=== PATIENT | male | born 1985 | race Hispanic/Latino ===

== ENCOUNTER 2019-12-29 08:34 | Observation (INO) | payer BC ==
[~2019-12-29] VITALS: Ht 170.2 cm; Wt 115.7 kg
--- NOTE | 2019-12-29 09:04 | Emergency Department Note ---
History of Present Illnes History of Present Illness Chief Complaint: General Medicine Complaints History of Present Illness This is a 34 year old male Chief Complaint Comment pt came in via POV referred by PCP, pt states that he had labs drawn yesterday due to nausea and was advised by his PCP to come to ED due to some abnormal labs, pt states that he was told his "liver" enzymes were elevated, pt is a newly diagnosed diabetic and was prescribed Metformin, pt has no complaints at this time but states that his doctor wants him to be admitted Historian: Patient Arrival Mode: Car Television Presenter Required: No Onset (how long ago): unknown Location: Blood Quality: Abnormal lab test Radiation: Reports non-radiation Severity: mild Onset quality: unable to specify Duration (how long): day(s) (1) Timing of current episode: constant Progression: unchanged Chronicity: new Context: Denies recent illness, Denies recent surgery Relieving factors: none Exacerbating factors: none Associated symptoms: Reports denies other symptoms Treatments prior to arrival: none Past Medical/Family History Physician Review I have reviewed the patient's past medical and family history. Any updates have been documented here. Past Medical History Recent Fever: No Clinical Suspicion of Infectio: No New/Unexplained Change in Ment: No Past Medical History: None Past Surgical History: None Other Any Pre-Existing Lines (PICC,: No Review of Systems Review of Systems Constitutional: Reports no symptoms EENTM: Reports no symptoms Cardiovascular: Reports no symptoms Respiratory: Reports no symptoms Gastrointestinal: Reports no symptoms Genitourinary: Reports no symptoms Musculoskeletal: Reports no symptoms Integumentary: Reports no symptoms Neurological: Reports no symptoms Psychological: Reports no symptoms Endocrine: Reports no symptoms Hematological/Lymphatic: Reports no symptoms Physical Exam Related Data Allergies: Coded Allergies: No Known Allergies (Unverified , 12/29/19) Triage Vital Signs Vital Signs Date Time Temp Pulse Resp B/P (MAP) Pulse Ox O2 Delivery O2 Flow Rate FiO2 12/29/19 08:54 98.6 102 18 134/87 100 Room Air Vital signs reviewed: Yes Physical Exam CONSTITUTIONAL Constitutional: Present well-developed, Present well-nourished HENT HENT: Present normocephalic, Present atraumatic, Present oropharynx clear/moist, Present nose normal HENT L/R: Present left ext ear normal, Present right ext ear normal EYES Eyes: Reports PERRL, Reports conjunctivae normal NECK Neck: Present ROM normal PULMONARY Pulmonary: Present effort normal, Present breath sounds normal CARDIOVASCULAR Cardiovascular: Present regular rhythm, Present heart sounds normal, Present capillary refill normal, Present normal rate GASTROINTESTINAL Abdominal: Present soft, Present nontender, Present bowel sounds normal GENITOURINARY Genitourinary: Present exam deferred SKIN Skin: Present warm, Present dry MUSCULOSKELETAL Musculoskeletal: Present ROM normal NEUROLOGICAL Neurological: Present alert, Present oriented x 3, Present no gross motor or sensory deficits PSYCHOLOGICAL Psychological: Present mood/affect normal, Present judgement normal Assessment & Plan Medical Decision Making MDM 34 y.o M presents for elevated LFT's. He has not complaints at this time. Labs drawn. Dr. Rutherford Patient. Labs show ALT 780 AST 480. Will admit to Dr. Rutherford for further work up. Reassessment Reassessment time: 10:07 Reassessment Well appearing, NAD Assessment & Plan Final Impression: (1) Elevated LFTs Depart Disposition: ADMITTED Last Vital Signs Date Time Temp Pulse Resp B/P (MAP) Pulse Ox O2 Delivery O2 Flow Rate FiO2 12/29/19 08:54 98.6 102 18 134/87 100 Room Air CHRISTINA GUZMAN MD Dec 29, 2019 09:04
[2019-12-29 09:22] LABS: BASOPHILS % 0.6 % (0.0-1.0); EOSINOPHILS # (AUTO) 0.1 (0.0-0.4); EOSINOPHILS % 1.9 % (0.0-6.0); HEMATOCRIT 50.3 % (38.2-49.6); HEMOGLOBIN 17.9 g/dL (14.0-18.0); LYMPHOCYTES # (AUTO) 1.5 (1.0-3.2); MEAN CORPUSCULAR HEMOGLOBIN 30.7 pg (28-32); MEAN CORPUSCULAR HGB CONC 35.6 g/dL (31-35); MEAN CORPUSCULAR VOLUME 86.1 fL (81-99); MONOCYTES # (AUTO) 0.6 (0.2-0.8); MONOCYTES % 8.6 % (4.4-11.3); NEUTROPHILS # (AUTO) 4.1 (2.1-6.9); NEUTROPHILS % 64.6 % (38.7-80.0); PLATELET COUNT 295 x10e3/uL (140-360); RED BLOOD COUNT 5.84 x10e6/uL (4.3-5.7); RED CELL DISTRIBUTION WIDTH 11.6 % (11.7-14.4)
[2019-12-29 09:49] LABS: ALBUMIN 4.6 g/dL (3.5-5.0); ALBUMIN/GLOBULIN RATIO 1.2 (0.8-2.0); CALCIUM 10.1 mg/dL (8.4-10.2); CREATININE, SERUM 1.45 mg/dL (0.72-1.25)
[2019-12-29] MEDS ORDERED: SODIUM CHLORIDE 0.9% 1000ML 1,000 ML IV SCH (10:00)
--- NOTE | 2019-12-29 11:30 | NUR ---
PT ARRIVED FROM ER. PT IS AAOX4. AT BEDSIDE. EDUCATED PT ABOUT FALL PRECAUTIONS. PT VERBALIZED UNDERSTANDING. CALL LIGHT WITH IN EASY REACH. INSTRUCTED PT TO USE CALL LIGHT FOR ALL THE NEEDS. BED IS LOW AND LOCKED. SIDE RAILS X2. ALL SAFETY MEASURES IN PLACE. PT DENIES NEEDS AT THIS TIME.
--- NOTE | 2019-12-29 11:50 | NUR ---
PT BLOOD SUGAR 324. REPORTED TO DR. RED. NEW ORDER RECEIVED.
[2019-12-29] MEDS ORDERED: DEXTROSE 50% SYRINGE 50 ML IV PRN (12:00)
--- NOTE | 2019-12-29 12:00 | NUR ---
PT CAME WITH IV FLUIDS NS FROM ER.
[2019-12-29 12:02] VITALS: BP 143/80
[2019-12-29] MEDS: INSULIN LISPRO 100 UNIT/1 ML 3ML VIAL SQ SCH ×3 (12:15→21:08)
[2019-12-29] MEDS: SODIUM CHLORIDE 0.9% 1000ML 1,000 ML IV SCH ×2 (12:22→20:08)
--- NOTE | 2019-12-29 12:30 | NUR ---
PAGED DR. HAHN OFFICE REGARDING NEW CONSULT.
[2019-12-29 13:00] VITALS: BP 143/80
[2019-12-29] MEDS ORDERED: METFORMIN HCL500 MG PO (14:19)
[2019-12-29 14:20] VITALS: BP 143/80
[2019-12-29 15:57] VITALS: BP 140/93
[2019-12-29] MEDS: METFORMIN HCL 500 MG TAB PO SCH (16:38)
[2019-12-29 19:00] VITALS: BP 144/94
--- NOTE | 2019-12-29 19:12 | NUR ---
BEDSIDE SHIFT REPORT GIVEN TO THE BARREL RIFLER OPERATOR RN. PT DENIED FURTHER NEEDS.
[2019-12-29 21:00] VITALS: BP 144/94
--- NOTE | 2019-12-29 22:15 | Consultation ---
DATE OF CONSULTATION: 12/29/2019 HISTORY OF PRESENT ILLNESS: This is a 34-year-old very nice gentleman who has not much of medical problem, presented and admitted to the hospital because of 1-week history of not feeling well and also nausea. He denies any abdominal pain along with this problem and his workup revealed that he has significant elevated liver function tests with AST of 488, ALT of 780, and bilirubin of 1.7. He denies any history of hepatitis and he also denies any history of alcohol abuse. PAST MEDICAL HISTORY: His past medical problem is unremarkable except history of diabetes. MEDICATIONS: At home including insulin and metformin. ALLERGIES: NONE. SOCIAL HISTORY: No alcohol abuse. FAMILY HISTORY: Noncontributory. REVIEW OF SYSTEMS: Denies any chest pain or shortness of breath. Denies any dysphagia or odynophagia. Denies any dysuria, hematuria, or any kind of syncopal episode. PHYSICAL EXAMINATION: GENERAL: He is awake, alert, appears to be stable. VITAL SIGNS: Afebrile, currently with stable vital signs. HEAD, EYES, EARS, NOSE, AND THROAT: Normocephalic, atraumatic. Sclerae are mildly icteric. NECK: Supple. HEART: Regular. LUNGS: Clear. ABDOMEN: Soft. There is no distention at this point. It is nontender. EXTREMITIES: No clubbing. LABORATORY VALUES: WBC 6.38, hemoglobin 17.9, hematocrit of 50.3, and platelet count 285, sodium 133, BUN 12, creatinine 1.45, bilirubin 1.7, AST 488, ALT 780. IMPRESSION: Elevated liver function tests and some nausea. Rule out possibility of acute hepatitis. Recommend possibly viral. Recommendation is to obtain abdominal ultrasounds, hepatitis panel, and then follow labs clinically. Santiago Patel MD DHD/MODL /[id number] cc: Justus Rutherford MD
[2019-12-30] VITALS (8 sets, daily range): BP systolic 117–139; BP diastolic 70–94
[2019-12-30] MEDS: SODIUM CHLORIDE 0.9% 1000ML 1,000 ML IV SCH ×3 (03:49→20:14)
[2019-12-30 05:21] LABS: BASOPHILS # (AUTO) 0.1 (0.0-0.1); BASOPHILS % 0.9 % (0.0-1.0); EOSINOPHILS # (AUTO) 0.2 (0.0-0.4); EOSINOPHILS % 3.2 % (0.0-6.0); HEMATOCRIT 40.8 % (38.2-49.6); HEMOGLOBIN 14.6 g/dL (14.0-18.0); LYMPHOCYTES # (AUTO) 1.9 (1.0-3.2); LYMPHOCYTES % 32.7 % (18.0-39.1); MEAN CORPUSCULAR HEMOGLOBIN 30.7 pg (28-32); MEAN CORPUSCULAR HGB CONC 35.8 g/dL (31-35); MEAN CORPUSCULAR VOLUME 85.7 fL (81-99); MONOCYTES # (AUTO) 0.6 (0.2-0.8); NEUTROPHILS % 52.7 % (38.7-80.0); PLATELET COUNT 223 x10e3/uL (140-360); RED BLOOD COUNT 4.76 x10e6/uL (4.3-5.7); RED CELL DISTRIBUTION WIDTH 11.5 % (11.7-14.4)
[2019-12-30 05:46] LABS: ALANINE AMINOTRANSFERASE 594 IU/L (0-55); ALBUMIN 3.7 g/dL (3.5-5.0); ALBUMIN/GLOBULIN RATIO 1.3 (0.8-2.0); ALKALINE PHOSPHATASE 81 IU/L (40-150); ANION GAP 17.4 mmol/L (8-16); BLOOD UREA NITROGEN 12 mg/dL (7-26); BUN/CREATININE RATIO 10 (6-25); CALCIUM 8.5 mg/dL (8.4-10.2); CARBON DIOXIDE 19 mmol/L (22-29); CHLORIDE 102 mmol/L (98-107); CREATININE, SERUM 1.15 mg/dL (0.72-1.25); EST GLOMERULAR FILTRATION RATE > 60 ML/MIN (60-); GLUCOSE 229 mg/dL (74-118); POTASSIUM 3.4 mmol/L (3.5-5.1); SODIUM 135 mmol/L (136-145)
--- NOTE | 2019-12-30 07:00 | NUR ---
BEDSIDE SHIFT REPORT RECEIVED FROM THE MACHINIST CLASS B RN. EDUCATED PT ABOUT FALL PRECAUTIONS. PT VERBALIZED UNDERSTANDING. CALL LIGHT WITH IN EASY REACH. INSTRUCTED PT TO USE CALL LIGHT FOR ALL THE NEEDS. BED IS LOW AND LOCKED. SIDE RAILS X2. ALL SAFETY MEASURES IN PLACE. PT DENIES NEEDS AT THIS TIME.
[2019-12-30] MEDS: METFORMIN HCL 500 MG TAB PO SCH ×2 (08:11→17:07)
[2019-12-30] MEDS: INSULIN LISPRO 100 UNIT/1 ML 3ML VIAL SQ SCH ×4 (08:25→20:40)
[2019-12-30] MEDS ORDERED: POTASSIUM CHLORIDE 10MEQ EA PO ONE (08:30)
--- NOTE | 2019-12-30 09:00 | NUR ---
ASSESSMENT: Spiritual concern Pt worried about unknown. Pt states he is waiting to hear about test results. Pt's at bedside. Pt thankful for nursing care. Intervention: Provided hospitality, empathic listening and prayer. Provided information on how to reach salon designer, if needed. Outcome: Pt & expressed appreciation for support. [facility] [employer] Spiritual Care Department O: [phone]
--- NOTE | 2019-12-30 09:59 | Diagnostic Imaging Report ---
EXAM: US ABDOMEN COMPLETE DATE: 12/30/2019 7:46 AM INDICATION: ^[id number] ^[id number] ^ELEVATED LFT COMPARISON: None TECHNIQUE: Transverse and longitudinal whitaker scale and color doppler sonographic images of the abdomen were obtained. FINDINGS: LIVER 16.7 cm in the right midclavicular line. Liver is severely diffusely echogenic with normal contour, no masses. SPLEEN 10.3 cm in maximum diameter. Normal echogenicity, no masses. GALLBLADDER No gallbladder wall thickening, distension, stone, or pericholecystic fluid. Negative reported sonographic Lay's sign. BILE DUCTS No intra nor extra-hepatic biliary dilation. Common bile duct measures 0.2cm PANCREAS: Visualized portions are normal. RIGHT KIDNEY: 12.0 cm Echogenicity: Normal Collecting System: No hydronephrosis Stones: None Cyst/Mass: None LEFT KIDNEY: 12.2 cm Echogenicity: Normal Collecting System: No hydronephrosis Stones: None Cyst/Mass: None VESSELS: Aorta: Visualized portions are within normal size limits Inferior Vena Cava: Visualized portions are normal Main Portal Vein: 1.1 cm, normal size with hepatopetal flow. FREE FLUID: None IMPRESSION: Diffuse severe hepatic steatosis. No biliary dilatation. Negative for cholelithiasis. Signed by: Bob Mueller MD on 12/30/2019 9:56 AM
--- NOTE | 2019-12-30 15:28 | NUR ---
Nutrition Screen Note RD Recommendation for Physician: -Continue 1800 ADA diet Plan of Care: RD following, monitoring for tolerance and adequacy Nutrition reason for involvement: consult for diabetic diet education Primary Diagnose(s): elevated LFTs PMH: diabetes Ht: 67 in Wt:255 lb BMI: 39.9 kg/m2 IBW:[address] Assessment: (12/30/19) Chart reviewed. Labs and meds reviewed. Pt is a 34 year old male admitted with elevated LFTs. Pt reports he is eating well at this time. 50-100% meal intake recorded. Pt stated he had unintentionally lost weight in the past week due to a decreased appetite prior to admission and used to weigh 260-262 lbs. If accurate, this would be a 2% weight loss in 1 week which is considered to be significant weight loss. No N/V/D/C or chewing/swallowing issues. RD discussed and provided written materials regarding carbohydrate counting and reading the food label. Pt verbalized understanding. Will continue to monitor. Current Diet: 1800 ADA Malnutrition Evaluation (12/30/19) The patient does not meet criteria for a specified degree of malnutrition at this time. Will re-evaluate at follow-up as appropriate. Diet Education Needs Assessment: Diet education indicated Learner(s): pt, family member at bedside Barriers: no barriers Cultural/Language Modifications: no cultural/language modifications Readiness: eager/acceptance Method: explanation/discussion/handout Topics: carbohydrate counting and reading the food label Understanding/Compliance: pt verbalized understanding Nutrition Care Level: low Signed: Izabella Escobedo, RD, LD
--- NOTE | 2019-12-30 19:10 | NUR ---
BEDSIDE SHIFT REPORT GIVEN TO THE PIPELAYER RN. PT DENIED FURTHER NEEDS.
[2019-12-31] VITALS: BP 132/87
[2019-12-31] MEDS: SODIUM CHLORIDE 0.9% 1000ML 1,000 ML IV SCH (03:45)
[2019-12-31 04:00] VITALS: BP 142/89
[2019-12-31 07:01] LABS: BASOPHILS # (AUTO) 0.1 (0.0-0.1); BASOPHILS % 0.9 % (0.0-1.0); EOSINOPHILS # (AUTO) 0.2 (0.0-0.4); EOSINOPHILS % 3.4 % (0.0-6.0); HEMATOCRIT 40.4 % (38.2-49.6); HEMOGLOBIN 14.7 g/dL (14.0-18.0); LYMPHOCYTES # (AUTO) 1.8 (1.0-3.2); LYMPHOCYTES % 32.8 % (18.0-39.1); MEAN CORPUSCULAR HEMOGLOBIN 31.4 pg (28-32); MEAN CORPUSCULAR HGB CONC 36.4 g/dL (31-35); MEAN CORPUSCULAR VOLUME 86.3 fL (81-99); MONOCYTES # (AUTO) 0.6 (0.2-0.8); MONOCYTES % 11.2 % (4.4-11.3); NEUTROPHILS # (AUTO) 2.8 (2.1-6.9); NEUTROPHILS % 51.3 % (38.7-80.0); PLATELET COUNT 229 x10e3/uL (140-360); RED BLOOD COUNT 4.68 x10e6/uL (4.3-5.7); RED CELL DISTRIBUTION WIDTH 11.6 % (11.7-14.4)
[2019-12-31 07:25] LABS: ALANINE AMINOTRANSFERASE 687 IU/L (0-55); ALBUMIN 3.7 g/dL (3.5-5.0); ALBUMIN/GLOBULIN RATIO 1.3 (0.8-2.0); ALKALINE PHOSPHATASE 77 IU/L (40-150); ANION GAP 15.5 mmol/L (8-16); BILIRUBIN,DIRECT 0.6 mg/dL (0.0-0.5); BLOOD UREA NITROGEN 6 mg/dL (7-26); BUN/CREATININE RATIO 6 (6-25); CALCIUM 8.5 mg/dL (8.4-10.2); CARBON DIOXIDE 22 mmol/L (22-29); CHLORIDE 99 mmol/L (98-107); CREATININE, SERUM 0.93 mg/dL (0.72-1.25); EST GLOMERULAR FILTRATION RATE > 60 ML/MIN (60-); GLUCOSE 219 mg/dL (74-118); MAGNESIUM 1.8 MG/DL (1.3-2.1); POTASSIUM 3.5 mmol/L (3.5-5.1); SODIUM 133 mmol/L (136-145)
[2019-12-31 08:00] VITALS: BP 135/97
[2019-12-31 08:51] VITALS: BP 135/97
[2019-12-31] MEDS: METFORMIN HCL 500 MG TAB PO SCH (08:53)
[2019-12-31] MEDS: INSULIN LISPRO 100 UNIT/1 ML 3ML VIAL SQ SCH (08:56)
--- NOTE | 2019-12-31 10:48 | NUR ---
Pt discharged home at this time. Pt is aox4 and able to verbalize needs. Pt denies any pain at this time. Pt verbalized understanding of all discharge instructions and follow up appointments.
[2019-12-31 20:44] LABS: ALPHA-1-ANTITRYPSIN 115 mg/dL (95-164)
--- NOTE | 2020-01-01 07:06 | Discharge Summary ---
DISCHARGE DIAGNOSES: 1. Elevated liver function tests. 2. New-onset diabetes. 3. Hypertension. 4. Fatty liver. HISTORY OF PRESENT ILLNESS AND HOSPITAL COURSE: The patient is a gentleman, who started feeling poorly for a few days prior to admission with some mild vague abdominal pain where he was seen in the office, noticed to have severe LFT abnormalities as well as new-onset diabetes with a strong family history of diabetes, so he was then brought into the hospital for further evaluation. His LFTs were already trending down on a daily basis. He had an ultrasound done that showed severe fatty liver, but no obstructive disease. He was seen by GI, who felt like the patient is having acute hepatitis, which is most likely secondary to fatty liver while serologies are pending. The patient was feeling well. He was eating well with no issues. He really wanted to go home and follow up as an outpatient. So, the patient was discharged home with metformin for new-onset diabetes. Diet instructions, exercise instructions, weight loss instructions, and follow up with me in GI in about 1 to 2 weeks and follow up on his laboratory data at that time, as well as the viral serologies at that time, which the patient states he would do. Please see hospital chart for full details. MD KAT Parrish/MINI /[id number]
== END 2019-12-31 10:48 | disposition home or self-care (01) ==
LOC: ER 09:19 → ERHOLD 10:02 → MED/SURG2 11:37
PROVIDERS: ADMIT Internal Medicine; ATTEND Internal Medicine
DX: R94.5 Abnormal results of liver function studies (principal); I10 Essential (primary) hypertension; K76.0 Fatty (change of) liver, not elsewhere classified; N17.9 Acute kidney failure, unspecified; E66.01 Morbid (severe) obesity due to excess calories; Z68.39 Body mass index [BMI] 39.0-39.9, adult; E11.9 Type 2 diabetes mellitus without complications
CPT/HCPCS: 36415 ×3; 76700; 80053 ×3; 82103; 82248; 82390; 82948 ×3; 83036; 83735; 85025 ×3; 86039; 86255 ×2; 99284; G0378 ×3; J7030 ×3; U0002

== ENCOUNTER 2020-11-23 15:10 | Emergency (ER) | payer BC ==
[~2020-11-23] VITALS: Ht 170.2 cm; Wt 115.7 kg
[~2020-11-23 15:10] MED LIST: METFORMIN HCL500 MG PO
[2020-11-23] MEDS ORDERED: CASIRIVIMAB/IMDEVIMAB 10 ML in SODIUM CHLORIDE 0.9% 100 ML IV ONE (15:45)
== END 2020-11-23 16:54 | disposition home or self-care (01) ==
LOC: ER 15:32
DX: U07.1 COVID-19 (principal); R05.9 Cough, unspecified
CPT/HCPCS: 99283; J7050

== ENCOUNTER 2022-06-20 19:28 | Emergency (ER) | payer BC ==
[~2022-06-20] VITALS: Ht 170.2 cm; Wt 72.6 kg
[2022-06-20 21:10] LABS: BASOPHILS % 0.6 % (0.0-1.0); EOSINOPHILS # (AUTO) 0.1 (0.0-0.4); EOSINOPHILS % 1.7 % (0.0-6.0); HEMATOCRIT 42.8 % (38.2-49.6); HEMOGLOBIN 15.3 g/dL (14.0-18.0); LYMPHOCYTES % 31.2 % (18.0-39.1); MEAN CORPUSCULAR HEMOGLOBIN 31.8 pg (28-32); MEAN CORPUSCULAR HGB CONC 35.7 g/dL (31-35); MONOCYTES # (AUTO) 0.5 (0.2-0.8); MONOCYTES % 8.5 % (4.4-11.3); NEUTROPHILS # (AUTO) 3.7 (2.1-6.9); NEUTROPHILS % 57.8 % (38.7-80.0); PLATELET COUNT 288 x10e3/uL (140-360); RED BLOOD COUNT 4.81 x10e6/uL (4.3-5.7); RED CELL DISTRIBUTION WIDTH 11.2 % (11.7-14.4)
[2022-06-20 21:28] LABS: ALBUMIN 4.2 g/dL (3.5-5.0); ALBUMIN/GLOBULIN RATIO 1.6 (0.8-2.0); ANION GAP 15.3 mmol/L (8-16); CALCIUM 9.4 mg/dL (8.4-10.2); CREATININE, SERUM 0.79 mg/dL (0.72-1.25); POTASSIUM 3.3 mmol/L (3.5-5.1)
[2022-06-20] MEDS ORDERED: IOPAMIDOL 370 MG/ML 100 ML INFUS..BTL INJ ONE (21:34)
[2022-06-20 22:53] LABS: CLARITY,URINE CLEAR (CLEAR); COLOR,URINE YELLOW (YELLOW); KETONES,URINE NEGATIVE (NEGATIVE); LEUKOCYTE ESTERASE ,URINE TRACE (NEGATIVE); NITRITE,URINE NEGATIVE (NEGATIVE); PROTEIN,URINE DIPSTICK NEGATIVE (NEGATIVE); URINE UROBILINOGEN 0.2 mg/dL (0.2 - 1)
[2022-06-20 22:56] LABS: BACTERIA,URINE FEW /HPF; EPITHELIAL CELLS,URINE FEW /LPF
[2022-06-20 23:15] VITALS: O2SAT 100
[2022-06-20] MEDS ORDERED: ULTRAM 50MG50 MG PO (23:15)
== END 2022-06-20 23:18 | disposition home or self-care (01) ==
LOC: ER 19:43
DX: R10.33 Periumbilical pain (principal); M54.50 Low back pain, unspecified; R30.0 Dysuria; E11.9 Type 2 diabetes mellitus without complications
CPT/HCPCS: 36415; 74177; 80053; 81001; 83690; 85025; 99284; Q9967